=== PATIENT | female | born 1995 | race Caucasian/White ===

== ENCOUNTER 2019-08-26 19:51 | Emergency (ER) | payer OTHER ==
[2019-08-26 20:14] VITALS: BMI 28.9
[2019-08-26] MEDS ORDERED: ACETAMINOPHEN 325 MG TABLET (FP) PO ONE (20:17)
[2019-08-26] MEDS ORDERED: ACETAMINOPHEN 325 MG TABLET (FP) ONE (21:03)
--- NOTE | 2019-08-26 21:22 | PDOC ---
Documentation entered by Jacinta Vu SCRIBE, acting as scribe for Aubrey Doyle MD. Aubrey Doyle MD: This documentation has been prepared by the Horace catherine Xhesika, SCRIBE, under my direction and personally reviewed by me in its entirety. I confirm that the documentation accurately reflects all work, treatment, procedures, and medical decision making performed by me. History of Present Illness - General Chief Complaint: Cold Symptoms Stated Complaint: FEVER AND SORE THROAT Time Seen by Provider: 08/26/19 19:57 History Source: Patient Exam Limitations: No Limitations - History of Present Illness Initial Comments: 08/26/19 20:36 The patient is a 23 year old female with a significant PMH of rectal bleeding, anemia, and ulcerative colitis (followed by GI) who presents to the emergency department for fever, headache, sore throat since yesterday. Pt states she was at work yesterday and smelled "ammonia." Pt reports shortly after smelling "ammonia" she started endorsing throat pain and drank honey and capitan grande band with mild relief of symptoms. Pt states today she endorsed R sided throat pain, described as scratching, associated with a headache, fever of 100.4, tinnitus, chest tightness and back pain, worsened with talking and coughing. Pt states she has gained 28 pounds in the past month due to taking steroids. Pt denies taking any pain medication for her symptoms. Pt notes her LMP was . The patient denies chest pain, shortness of breath, and dizziness. Denies chills , nausea, vomiting, diarrhea and constipation. Denies dysuria, frequency, urgency and hematuria. Allergies: NKDA. mold, dust Past History - Past Medical History Allergies/Adverse Reactions: Allergies Allergy/AdvReac Type Severity Reaction Status Date / Time mold Allergy Mild Difficulty Verified 08/26/19 19:54 Breathing DUST Allergy Intermediate Difficulty Uncoded 08/26/19 19:54 Breathing Home Medications: Ambulatory Orders Tofacitinib Citrate [Xeljanz] 10 mg PO DAILY 08/26/19 Anemia: Yes COPD: No GI Disorders: Yes (ULCERATIVE COLITIS) - Immunization History Immunization Up to Date: No - Psycho Social/Smoking Cessation Hx Smoking History: Never smoked Hx Alcohol Use: No Drug/Substance Use Hx: No Review of Systems - Review of Systems Able to Perform ROS?: Yes Comments:: 08/26/19 20:38 Constitutional: + fever. No Chills, weakness, HEENT: denies vision changes. +sore throat. +tinnitus Respiratory: Denies sob, hemoptysis. + cough Cardiac: + chest tightness. denies chest pain, palpitations, light headedness, leg swelling Abd/GI: denies abd pain, nausea, vomiting, blood per rectum, melena, diarrhea : denies dysuria, frequency, discharge Musculskelatal;+ back pain. No joint swelling skin - denies bruising, erythema, rash neurological: +headache. No numbness, focal weakness, tingling, ataxia, weakness hematologic: denies anemia, easy bruising, easy bleeding *Physical Exam - Vital Signs Last Vital Signs Temp Pulse Resp BP Pulse Ox 100.3 F H 124 H 16 124/88 100 08/26/19 19:53 08/26/19 19:53 08/26/19 19:53 08/26/19 19:53 08/26/19 19:53 - Physical Exam 08/26/19 20:43 GENERAL: The patient is awake, alert, and fully oriented, Nontoxic - in no acute distress. HEAD: Normocephalic, atraumatic. EYES: extraocular movements intact, sclera anicteric, conjunctiva clear. ENT: Normal voice, mild symmetric erythema in posterior pharynx wo exudates, moist mucous membranes. NECK: Normal range of motion, supple LUNGS: Breath sounds equal, clear to auscultation bilaterally. No wheezes, no rhonchi, no rales. HEART: Regular rate and rhythm, normal S1 and S2 without murmur, rub or gallop. ABDOMEN: Soft, nontender, No guarding, no rebound. No CVA tenderness EXTREMITIES: Normal range of motion, no edema. NEUROLOGICAL: No facial assymetry, Normal speech, PSYCH: Normal mood, normal affect. SKIN: Warm, Dry, normal turgor, Medical Decision Making - Medical Decision Making 08/26/19 20:44 23-year-old history UC Presenting with 2-day history of fever, sore throat, dry nonproductive cough. On exam patient no acute distress, had does have some mild erythema in posterior pharynx, her vital signs noted for fever and tachycardia. Will obtain a rapid strep we will give the patient Tylenol for fever control. Will reassess 08/26/19 21:20 Rapid strep negative symptoms likely secondary to a viral syndrome Will discharge patient with supportive care at home I discussed the physical exam findings, ancillary test results and final diagnoses with the patient. I answered all of the patient's questions. The patient was satisfied with the care received and felt comfortable with the discharge plan and treatment plan. The patient will call their primary care physician within 24 hours to arrange follow-up and will return to the Emergency Department with any new, persistent or worsening symptoms. Discharge - Discharge Information Problems reviewed: Yes Clinical Impression/Diagnosis: URI (upper respiratory infection) Qualifiers: URI type: acute pharyngitis Pharyngitis/tonsillitis etiology: unspecified etiology Qualified Code(s): J02.9 - Acute pharyngitis, unspecified Qualifiers: Weeks of gestation: less than 8 weeks Qualified Code(s): Z3A.01 - Less than 8 weeks gestation of Condition: Improved Disposition: HOME - Admission No - Follow up/Referral Referrals: Jake Jackson MD [Staff Physician] - - Patient Discharge Instructions Patient Printed Discharge Instructions: DI for Viral Upper Respiratory Infection -- Adult Additional Instructions: Return to the emergency department immediately with ANY new, persistent or worsening symptoms Including worsening shortness of breath, chest pain, inability to tolerate oral intake or any other concerns. Take Tylenol or Motrin as needed for your body aches and fever. Make sure he stay well-hydrated You Had a positive test please follow-up with your doctor for further management of your . You MUST call and follow up with your doctor tomorrow for further evaluation of your symptoms. Results were discussed with you. Please make sure your doctor reviews the results of your emergency evaluation. Your Emergency Department visit is not complete without a follow up with your doctor. Print Language: URDU - Post Discharge Activity
[2019-08-26 21:31] VITALS: BP 117/77; PULSE 107; TEMP 99.6
== END 2019-08-26 22:36 | disposition home or self-care (01) ==
LOC: SUPCPDRO 19:51 → FER 19:51
DX: J02.9 Acute pharyngitis, unspecified (principal); Z3A.01 Less than 8 weeks gestation of pregnancy; Z91.048 Other nonmedicinal substance allergy status; R50.9 Fever, unspecified
CPT/HCPCS: 81025; 87070; 87880; 99282-25

== ENCOUNTER 2019-09-02 17:06 | Emergency (ER) | payer OTHER ==
[2019-09-02 17:23] VITALS: BP 117/86; PULSE 89; TEMP 98.1; BMI 28.3
[2019-09-02 17:42] LABS: BASO % 0.2 % (0-2.0); EOS % 0.6 % (0-4.5); HEMATOCRIT 37.2 % (32.4-45.2); HEMOGLOBIN 12.4 GM/dl (10.7-15.3); LYMPH % 31.7 % (8-40); MCH 27.2 pg (25.7-33.7); MCHC 33.3 g/dl (32.0-36.0); MEAN CELL VOLUME 81.6 fl (80-96); MEAN PLT VOLUME 7.7 fl (7.5-11.1); MONO % 6.7 % (3.8-10.2); NEUT % 60.8 % (42.8-82.8); PLATELET COUNT 199 K/MM3 (134-434); RBC 4.55 M/mm3 (3.60-5.2); RDW 14.4 % (11.6-15.6); WHITE BLOOD COUNT 4.1 K/mm3 (4.0-10.8)
--- NOTE | 2019-09-02 19:04 | PDOC ---
Documentation entered by Martínez Coronado SCRIBE, acting as scribe for Joe Cota MD. Joe Cota MD: This documentation has been prepared by the Cliff catherine Nirvannie, SCRIBE, under my direction and personally reviewed by me in its entirety. I confirm that the documentation accurately reflects all work, treatment, procedures, and medical decision making performed by me. History of Present Illness - General Chief Complaint: ,Possible Stated Complaint: WITH VAGINAL DISCHARGE BROWN AND BLOOD Time Seen by Provider: 09/02/19 17:13 History Source: Patient Exam Limitations: No Limitations - History of Present Illness Initial Comments: 09/02/19 17:26 The patient is a 23 year old 4-5 weeks female, with a significant past medical history of rectal bleeding, anemia, and ulcerative colitis, who presents to the emergency department with vaginal bleeding. As per patient, she found out she was a week ago and approximately 2 days ago she began experiencing brown discharge, Today she notes the onset of bright red vaginal bleeding with clots and associated pelvic cramping, prompting her arrival to the ED. She denies recent dysuria, frequency, urgency or hematuria. She denies recent fevers, chills, headache or dizziness. She denies recent nausea, vomiting, diarrhea or constipation. She denies recent chest pain or shortness of breath. Allergies: Mold, dust. Past surgical history: None reported. Social history: Nonsmoker. Denies EtOH use and recreational drug use. LMP: 07/20/19 Past History - Past Medical History Allergies/Adverse Reactions: Allergies Allergy/AdvReac Type Severity Reaction Status Date / Time mold Allergy Mild Difficulty Verified 09/02/19 17:08 Breathing DUST Allergy Intermediate Difficulty Uncoded 09/02/19 17:08 Breathing Home Medications: Ambulatory Orders Tofacitinib Citrate [Xeljanz] 10 mg PO BID 08/26/19 Anemia: Yes COPD: No GI Disorders: Yes (ULCERATIVE COLITIS) - Immunization History Immunization Up to Date: No - Psycho Social/Smoking Cessation Hx Smoking History: Never smoked Hx Alcohol Use: No Drug/Substance Use Hx: No Review of Systems - Review of Systems Able to Perform ROS?: Yes Constitutional: No: Chills, Diaphoresis, Fever, Loss of Appetite, Malaise, Night Sweats, Weakness HEENTM: No: Ear Pain, Nose Pain, Nose Congestion, Tinnitus, Nose Bleeding, Hearing Loss, Throat Pain, Difficulty Swallowing Respiratory: Yes: Cough. No: Orthopnea, Shortness of Breath, SOB with Exertion , SOB at Rest, Stridor, Wheezing, Productive cough, Hemoptysis Cardiac (ROS): No: Chest Pain, Edema, Irregular Heart Rate, Lightheadedness, Palpitations, Syncope, Chest Tightness ABD/GI: Yes: Abdominal cramping (Pelvic cramping. ). No: Symptoms Reported, Abdominal Distended, Constipated, Diarrhea, Difficulty Swallowing, Nausea, Poor Appetite, Poor Fluid Intake, Rectal Bleeding, Vomiting, Indigestion, Tarry Stools, Other : Yes: Symptoms Reported, Other (Vaginal bleeding. ) Musculoskeletal: No: Back Pain, Gout, Joint Pain, Joint Swelling, Muscle Pain, Neck Pain Integumentary: No: Erythema, Lesions, Pruritus, Rash, Sweating Neurological: No: Headache, Numbness, Paresthesia, Pre-Existing Deficit, Seizure , Tingling, Tremors, Weakness, Unsteady Gait, Ataxia, Dizziness Psychiatric: No: Anxiety, Depression, Frequent Crying, Stressors, Sleep Pattern Change, Emotional Problems, Mood Swings, Change in Appetite Endocrine: Yes: See HPI. No: Excessive Sweating, Flushing, Intolerance to Cold , Intolerance to Heat, Increased Hunger, Increased Thirst, Increased Urine Hematologic/Lymphatic: No: Easy Bleeding, Easy Bruising, Bleeding Diathesis, Lymph Node Abnormalities, Swollen Glands All Other Systems: Reviewed and Negative *Physical Exam - Vital Signs Last Vital Signs Temp Pulse Resp BP Pulse Ox 98.1 F 89 16 117/86 99 09/02/19 17:08 09/02/19 17:08 09/02/19 17:08 09/02/19 17:08 09/02/19 17:08 - Physical Exam General Appearance: Yes: Nourished, Appropriately Dressed HEENT: positive: Normal Voice Neck: positive: Supple Respiratory/Chest: positive: Lungs Clear, Normal Breath Sounds Cardiovascular: positive: Regular Rhythm, Regular Rate, S1, S2 Gastrointestinal/Abdominal: positive: Normal Bowel Sounds, Soft, Other ( Nontender.) Musculoskeletal: positive: Normal Inspection Extremity: positive: Normal Capillary Refill, Normal Inspection, Normal Range of Motion Integumentary: positive: Normal Color, Dry, Warm 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, Fully Oriented, Alert, Normal Mood/ Affect, Normal Response ED Treatment Course - LABORATORY CBC & Chemistry Diagram: 09/02/19 17:20 - ADDITIONAL ORDERS Additional order review: 09/02/19 17:20 RBC 4.55 MCV 81.6 MCHC 33.3 RDW 14.4 MPV 7.7 Neutrophils % 60.8 Lymphocytes % 31.7 Monocytes % 6.7 Eosinophils % 0.6 Basophils % 0.2 - RADIOLOGY Radiology Studies Ordered: Category Date Time Status TRANSVAGINAL US PREG [US] Stat Ultrasound 09/02/19 17:17 Ordered ED Progress Note - Progress Note Progress Note: 09/02/19 17:46 23 y/o with vaginal bleeding and abdominal pain, 4-5 weeks Labs and US obtained Pelvic exam deferred as per pt, risks and benefits discussed with pt. 09/02/19 18:37 US: miscarriage vs early preg vs ectopic Awaiting Quantitative HCG and ABO Rh factor At 1900 case will be endorsed to Dr. Peraza Discharge - Discharge Information Problems reviewed: Yes Clinical Impression/Diagnosis: Miscarriage, threatened, early Condition: Stable - Follow up/Referral - Patient Discharge Instructions - Post Discharge Activity
--- NOTE | 2019-09-02 19:51 | PDOC ---
*Physical Exam - Vital Signs Last Vital Signs Temp Pulse Resp BP Pulse Ox 98.1 F 89 16 117/86 99 09/02/19 17:08 09/02/19 17:08 09/02/19 17:08 09/02/19 17:08 09/02/19 17:08 ED Treatment Course - LABORATORY CBC & Chemistry Diagram: 09/02/19 17:20 - ADDITIONAL ORDERS Additional order review: Laboratory Results 09/02/19 09/02/19 17:50 17:30 Beta HCG, Quant 70.0 Urine Color Yellow Urine Appearance Clear Urine pH 7.0 Urine Protein Negative Urine Glucose (UA) Negative Urine Ketones Negative Urine Blood 3+ H Urine Nitrite Negative Urine Bilirubin Negative Urine Urobilinogen 0.2 Ur Leukocyte Esterase Negative 09/02/19 17:20 RBC 4.55 MCV 81.6 MCHC 33.3 RDW 14.4 MPV 7.7 Neutrophils % 60.8 Lymphocytes % 31.7 Monocytes % 6.7 Eosinophils % 0.6 Basophils % 0.2 ED Progress Note - Progress Note Progress Note: 09/02/19 19:49 This is a 23-year-old female whose care was transferred to ut from Dr. Iraheta at 1900 hrs. Patient is approximately a 6 weeks by dates. Patient is experiencing bright red blood vaginally. Patient had an ultrasound that does not show a sac. And patient's beta hCG is only 7 days. So this most likely is a completed . Patient's blood type is Discharge - Discharge Information Problems reviewed: Yes Clinical Impression/Diagnosis: Miscarriage, threatened, early Condition: Stable Disposition: HOME - Admission No - Follow up/Referral Referrals: Leo Valentine MD [Staff Physician] - - Patient Discharge Instructions Additional Instructions: Tylenol or Motrin as needed for pain. It is important that you call Dr. Valentine in the morning and get an appointment for follow-up as soon as possible your hormone should be repeated in 48 hours. Return to the emergency department immediately with ANY new, persistent or worsening symptoms. Continue any medications as previously prescribed by your physician. You should follow up with your primary doctor as soon as possible regarding today's emergency department visit. . Please make sure your doctor reviews the results of your emergency evaluation. Thank you for coming to the Emergency Department today for your care. It was a pleasure to see you today. Please note that your evaluation is INCOMPLETE until you follow-up with your doctor. - Post Discharge Activity
[2019-09-02 19:55] LABS: EPITHELIAL CELLS FEW /hpf
== END 2019-09-02 19:58 | disposition home or self-care (01) ==
LOC: FER 17:06
DX: O26.891 Other specified pregnancy related conditions, first trimester (principal); Z3A.01 Less than 8 weeks gestation of pregnancy; O20.0 Threatened abortion; Z91.09 Other allergy status, other than to drugs and biological substances; D64.9 Anemia, unspecified
CPT/HCPCS: 36415; 76817-TC; 81003; 81015; 84702; 85025; 86850; 86900; 86901; 99282-25

== ENCOUNTER 2021-06-18 13:30 | Emergency (ER) | payer OTHER ==
[2021-06-18 13:40] VITALS: TEMP 98.7; BMI 26.7
[2021-06-18] MEDS ORDERED: ACETAMINOPHEN 1000 MG/100 ML VIAL IVPB ONE (14:12)
[2021-06-18] MEDS ORDERED: SODIUM CHLORIDE 1,000 ML IV STA (14:12)
[2021-06-18] MEDS ORDERED: ACETAMINOPHEN INJECTION 100 ML IVPB ONE (14:30)
[2021-06-18 14:51] LABS: BASO % 4.5 % (0-2.0); CALCIUM 8.4 mg/dl (8.5-10); EOS % 1.1 % (0-4.5); HEMOGLOBIN 12.5 GM/dl (10.7-15.3); LYMPH % 29.1 % (8-40); MCH 29.4 pg (25.7-33.7); MCHC 34.6 g/dl (32.0-36.0); MEAN CELL VOLUME 84.9 fl (80-96); MEAN PLT VOLUME 8.9 fl (7.5-11.1); MONO % 8.1 % (3.8-10.2); NEUT % 57.2 % (42.8-82.8); PLATELET COUNT 145 10^3/uL (134-434); RBC 4.24 M/mm3 (3.60-5.2); RDW 12.7 % (11.6-15.6); WHITE BLOOD COUNT 4.2 K/mm3 (4.0-10.8)
[2021-06-18 14:58] LABS: ALBUMIN 4.1 g/dl (3.4-5.0); BILIRUBIN,TOTAL 1.4 mg/dl (0.2-1); CREATININE 0.6 mg/dl (0.55-1.3); TOT PROT 6.7 g/dl (6.4-8.2)
[2021-06-18 15:10] LABS: EPITHELIAL CELLS MODERATE /hpf; URINE MUCUS 3+
[2021-06-18 20:58] VITALS: BP 107/78; PULSE 80
[2021-06-18] MEDS ORDERED: ACETAMINOPHEN 500 MG TABLET (FP) PO ONE (21:02)
[2021-06-18] MEDS ORDERED: ACETAMINOPHEN 500 MG TABLET (FP) ONE (21:07)
== END 2021-06-18 21:19 | disposition home or self-care (01) ==
LOC: FER 13:30
PROC: 3E033NZ Introduction of Analgesics, Hypnotics, Sedatives into Peripheral Vein, Percutaneous Approach (ICD-10-PCS; principal; 2021-06-18)
PROC: 3E0337Z Introduction of Electrolytic and Water Balance Substance into Peripheral Vein, Percutaneous Approach (ICD-10-PCS; 2021-06-18)
DX: R10.30 Lower abdominal pain, unspecified (principal); N83.209 Unspecified ovarian cyst, unspecified side
CPT/HCPCS: 36415; 74177-TC; 76700-TC; 76830-TC; 80053; 81003; 81015; 83690; 84703; 85025; 87077; 87086; 99285-25; J0131; Q9967

== ENCOUNTER 2021-12-28 12:40 | Emergency (ER) | payer OTHER ==
[2021-12-28 12:53] VITALS: BP 122/78; PULSE 86; TEMP 97.8; BMI 26.2
[2021-12-28] MEDS ORDERED: LORATADINE 10 MG TABLET PO ONE (13:26)
[2021-12-28] MEDS ORDERED: LORATADINE 10 MG TABLET ONE (13:33)
[2021-12-28 14:15] LABS: HEMATOCRIT 37.1 % (32.4-45.2); HEMOGLOBIN 13.2 G/dL (10.7-15.3); MCH 30.4 pg (25.7-33.7); MCHC 35.6 g/dl (32.0-36.0); MEAN CELL VOLUME 85.3 fl (80-96); MEAN PLT VOLUME 8.5 fl (7.5-11.1); RBC 4.35 10^6/uL (3.60-5.2); RDW 14.5 % (11.6-15.6); WHITE BLOOD COUNT 6.5 10^3/uL (4.0-10.8)
== END 2021-12-28 15:46 | disposition home or self-care (01) ==
LOC: FER 12:40
DX: R09.81 Nasal congestion (principal)
CPT/HCPCS: 36415; 85025; 99283-25

== ENCOUNTER 2022-01-19 14:46 | Emergency (ER) | payer OTHER ==
[2022-01-19 15:08] VITALS: BP 105/75; PULSE 90; TEMP 98.5; BMI 26.2
== END 2022-01-19 15:14 | disposition home or self-care (01) ==
LOC: FER 14:46
DX: B02.9 Zoster without complications (principal)
CPT/HCPCS: 99281-25

== ENCOUNTER 2022-02-11 20:35 | Emergency (ER) | payer OTHER ==
[2022-02-11 20:42] VITALS: TEMP 98.5; BMI 26.2
[2022-02-11] MEDS ORDERED: morphine CARPU-JECT 2 MG/1 ML DISP.SYRIN IVPUSH ONE (20:54)
[2022-02-11] MEDS ORDERED: SODIUM CHLORIDE 1,000 ML IV ONE (20:54)
[2022-02-11] MEDS ORDERED: morphine SULFATE 4 MG/ML VIAL ONE (21:11)
[2022-02-11 21:20] LABS: HCG,QUALITATIVE URINE Negative
[2022-02-11 21:24] LABS: EPITHELIAL CELLS FEW /hpf
[2022-02-11 21:37] LABS: HEMATOCRIT 39.1 % (32.4-45.2); HEMOGLOBIN 13.9 G/dL (10.7-15.3); MCH 30.9 pg (25.7-33.7); MCHC 35.5 g/dl (32.0-36.0); MEAN PLT VOLUME 8.1 fl (7.5-11.1); PLATELET COUNT 197.9 10^3/uL (134-434); RBC 4.49 10^6/uL (3.60-5.2); RDW 14.7 % (11.6-15.6)
[2022-02-11 21:39] LABS: ALBUMIN 4.2 g/dl (3.4-5.0); BILIRUBIN,TOTAL 1.9 mg/dl (0.2-1); CALCIUM 9.4 mg/dl (8.5-10); CREATININE 0.8 mg/dl (0.55-1.3); TOT PROT 7.4 g/dl (6.4-8.2)
[2022-02-12 01:54] VITALS: BP 102/66; PULSE 73
== END 2022-02-12 01:45 | disposition home or self-care (01) ==
LOC: FER 20:35
PROC: 3E033NZ Introduction of Analgesics, Hypnotics, Sedatives into Peripheral Vein, Percutaneous Approach (ICD-10-PCS; principal; 2022-02-11)
PROC: 3E0337Z Introduction of Electrolytic and Water Balance Substance into Peripheral Vein, Percutaneous Approach (ICD-10-PCS; 2022-02-11)
DX: R10.9 Unspecified abdominal pain (principal)
CPT/HCPCS: 36415; 74177-TC; 80053; 81003; 81015; 84703; 85025; 99285-25; Q9967

== ENCOUNTER 2022-06-09 13:49 | Emergency (ER) | payer OTHER ==
[2022-06-09] MEDS ORDERED: METOCLOPRAMIDE HCL INJECTION 10 MG/2 ML VIAL IVPUSH ONE (14:06)
[2022-06-09] MEDS ORDERED: SODIUM CHLORIDE 0.9% 500 ML INFUS.BAG IV ONE (14:12)
[2022-06-09] MEDS ORDERED: METOCLOPRAMIDE HCL INJECTION 10 MG/2 ML VIAL ONE (14:22)
[2022-06-09 14:46] VITALS: BP 96/60; PULSE 88; RESP 18; TEMP 98.5; BMI 26.7
[2022-06-09 14:53] LABS: HEMATOCRIT 40.2 % (32.4-45.2); HEMOGLOBIN 13.9 G/dL (10.7-15.3); MCH 29.1 pg (25.7-33.7); MCHC 34.5 g/dl (32.0-36.0); MEAN CELL VOLUME 84.5 fl (80-96); MEAN PLT VOLUME 7.7 fl (7.5-11.1); RBC 4.76 10^6/uL (3.60-5.2); RDW 14.4 % (11.6-15.6); WHITE BLOOD COUNT 6.6 10^3/uL (4.0-10.8)
[2022-06-09 15:03] LABS: BILIRUBIN,TOTAL 2.6 mg/dl (0.2-1); CALCIUM 9.1 mg/dl (8.5-10); CREATININE 0.5 mg/dl (0.55-1.3); TOT PROT 6.7 g/dl (6.4-8.2)
== END 2022-06-09 17:38 | disposition home or self-care (01) ==
LOC: FER 13:49
PROC: 3E033NZ Introduction of Analgesics, Hypnotics, Sedatives into Peripheral Vein, Percutaneous Approach (ICD-10-PCS; principal; 2022-06-09)
PROC: 3E033GC Introduction of Other Therapeutic Substance into Peripheral Vein, Percutaneous Approach (ICD-10-PCS; 2022-06-09)
DX: R51.9 Headache, unspecified (principal)
CPT/HCPCS: 36415; 70450-TC; 70496-TC; 70498-TC; 80053; 84703; 85025; 99285-25